=== PATIENT | male | born 1950 | race Caucasian/White ===

== ENCOUNTER → 2018-06-06 | Outpatient (CLI) | payer OTHER, BC | LOC: BHFA 11:30 | PROVIDERS: ATTEND Internal Medicine Cardiovascular Disease | DX: I48.91 Unspecified atrial fibrillation (principal); I25.10 Atherosclerotic heart disease of native coronary artery without angina pectoris; I10 Essential (primary) hypertension; E78.5 Hyperlipidemia, unspecified; G47.30 Sleep apnea, unspecified ==

== ENCOUNTER 2018-06-12 12:04 | Inpatient (IN) | payer OTHER, BC ==
[~2018-06-12 12:04] MED LIST: ATROPINE SULFATE 1 MG/10 ML SYR IVP ONE; BENZOCAINE UNIT DOSE SPRAY HURRICAINE MM ONE; MIDAZOLAM 2 MG/2 ML VIAL IVP ONE; NS 500 ML IV ONE; fentaNYL 100 MCG/2 ML INJ IVP ONE
[2018-06-12] MEDS ORDERED: PROPOFOL 200 MG/20 ML VIAL ONE ×2 (12:25→12:34)
--- NOTE | 2018-06-12 12:28 | PDANEPAE ---
ANE History of Present Illness Afib with RVR ANE Past Medical History - Cardiovascular History Hx Hypertension: Yes Hx Arrhythmias: Yes Hx Chest Pain: No Hx Coronary Artery / Peripheral Vascular Disease: Yes Hx CHF / Valvular Disease: No Hx Palpitations: Yes Cardiovascular History Comment: +CAD. +h/o TX. s/p stents x 5 - Pulmonary History Hx COPD: Yes Hx Asthma/Reactive Airway Disease: No Hx Recent Upper Respiratory Infection: No Hx Oxygen in Use at Home: Yes Hx Sleep Apnea: Yes - Neurologic History Hx Cerebrovascular Accident: No Hx Seizures: No Hx Dementia: No - Endocrine History Hx Diabetes: No Hypothyroid: No Hyperthyroid: No Obesity: moderate Endocrine History Comment: +pre-diabetes - not currently on meds - Renal History Hx Renal Disorders: No - Liver History Hx Hepatic Disorders: No - Neurological & Psychiatric Hx Hx Neurological and Psychiatric Disorders: No - Cancer History Hx Cancer: Yes Cancer History Comment: 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 ANE Review of Systems Review of systems is: negative Review of Systems: - Exercise capacity Exercise capacity: >=4 METS ANE Patient History - Allergies Allergies/Adverse Reactions: acetaminophen Allergy (Verified 06/12/18 13:38) Hives - Home Medications Home medications: home medication list seen and reviewed Home Medications: Apixaban [Eliquis] 5 mg PO BID 06/12/18 [Last Taken 06/12/18] Aspirin [Aspirin 81mg (*)] 81 mg PO DAILY 06/12/18 [Last Taken 06/11/18] Carvedilol [Coreg (*)] 12.5 mg PO BID 06/12/18 [Last Taken 06/11/18 21:00] Clopidogrel Bisulfate [Plavix (*)] 75 mg PO DAILY 06/12/18 [Last Taken 06/12/18] Herbals/Supplements -Info Only 1 ea PO DAILY 06/12/18 [Last Taken Unknown] Hydrochlorothiazide [HCTZ (*)] 12.5 mg PO HS 06/12/18 [Last Taken 06/11/18] Losartan/Hydrochlorothiazide [Losartan-Hctz 100-25 mg Tab] 1 each PO DAILY 06/12 [Last Taken 06/11/18] Multivitamins [Multivitamin (*)] 1 each PO DAILY 06/12/18 [Last Taken 06/11/18] Rosuvastatin Calcium [Crestor 20mg (*)] 20 mg PO HS 06/12/18 [Last Taken ] Tiotropium Inhaler [Spiriva Inhaler] 2 inh IH DAILY 06/12/18 [Last Taken ] - NPO status NPO Status: no food or drink >8 hours - Anes Hx Anes Hx: no prior problems - Smoking Hx Smoking Status: Former smoker - Alcohol Use Alcohol Use: Heavy - Family Anes Hx Family Anes Hx: none ANE Labs/Vital Signs - Labs Result Diagrams: 06/12/18 12:35 06/12/18 12:35 - Vital Signs Vital Signs: reviewed preoperatively; see RN documention for details ANE Physical Exam - Airway Neck exam: FROM Mallampati Score: Class 2 Mouth exam: normal dental/mouth exam, small mouth opening, [place] - Pulmonary Pulmonary: no respiratory distress - Cardiovascular Cardiovascular: regular rate and rhythym - ASA Status ASA Status: III ANE Anesthesia Plan Anesthesia Plan: GA with mask
--- NOTE | 2018-06-12 12:44 | PDGENHP ---
History & Physical Chief Complaint: symptomatic AFIB Relevant Physical Exam: s1s2 irreg. cta. ao3 Cardiorespiratory Assessment: for santos guided cv. plan sotalol after cv
--- NOTE | 2018-06-12 12:59 | PDTEE1 ---
RAFITA Cardioversion Procedure Procedure: electrical cardioversion, transesophageal echo Indications: atrial fibrillation Consent: signed and in chart Anticoagulation: eliquis Procedural Details: Pads were placed in anterior-posterior position. RAFITA probe was advanced and standard images obtained. There is no evidence of left atrial or left atrial appendage thrombus. Synchronized cardioversion attempt #1: 100J (ERAF after 5 minutes) Synchronized cardioversion attempt #2: 200J Results: normal sinus rhythm Conclusions: successful RAFITA cardioversion Patient Problems: Problems Problem Status Onset Atrial fibrillation Acute
[2018-06-12 13:05] LABS: INR 1.28 (0.83-1.16); PROTIME(PATIENT) 16.2 SEC (12.0-15.0)
--- NOTE | 2018-06-12 15:13 | POSTANESTH ---
Post Anesthetic Evaluation Cardiovascular Status: Normal, Stable Respiratory Status: Normal, Stable Level of Consciousness/Mental Status: Can Participate in Eval Pain Control: Adequate, Prn Tx Ordered Nausea/Vomiting Control: Adequate, Prn Tx Ordered Complications Possibly Related to Anesthesia: None Noted
[2018-06-12] MEDS ORDERED: IBUPROFEN 200 MG TAB PO ONE (15:24)
[2018-06-12 18:54] LABS: PLATELET COUNT 208 10^3/uL (150-400)
[2018-06-12] MEDS: APIXABAN 5 MG TAB PO SCH (21:06)
[2018-06-12] MEDS: ROSUVASTATIN CALCIUM 20 MG TAB PO SCH (21:06)
[2018-06-12] MEDS: SOTALOL HCL 80 MG TAB PO SCH (21:06)
[2018-06-12] MEDS: HYDROCHLOROTHIAZIDE 12.5 MG CAP PO SCH (21:06)
[2018-06-13] MEDS: SOTALOL HCL 80 MG TAB PO SCH ×2 (08:43→21:01)
[2018-06-13] MEDS: LOSARTAN/HCTZ 50/12.5 1 TAB PO SCH (08:43)
[2018-06-13] MEDS: ASPIRIN 81 MG CHEWABLE TAB PO SCH (08:44)
[2018-06-13] MEDS: CLOPIDOGREL BISULFATE 75 MG TAB PO SCH (08:44)
[2018-06-13] MEDS: APIXABAN 5 MG TAB PO SCH ×2 (08:45→21:01)
--- NOTE | 2018-06-13 08:49 | PDCARPN ---
Cardiology Progress Note Chief Complaint: Atrial fibrillation, sotalol loading Assessment/Plan: Assessment: 1. Atrial fibrillation: symptomatic paroxysmal atrial fibrillation s/p cardioversion yesterday followed by initiation of Sotalol loading. Pre- administration ECG demonstrated JT 359ms. ECG after 1st dose of Sotalol 120mg yesterday demonstrated stable JT also measuring 359ms. Potassium 3.5, Mg 2.1, Cr 0.7, and CrCl 146. Will continue with Sotalol loading today. He is anticoagulated with Eliquis, [id number] score = 3 (age, HTN, CAD). 2. Coronary artery disease: s/p PCI in 2007, 2009, and 2011. No anginal symptoms. 3. Sleep apnea: on CPAP 4: Obesity Plan: 1. Continue with Sotalol loading and monitoring with 2-hour post-dose ECGs for JT <400ms 2. Plan for DC home tomorrow after his 5th dose. 3. Ongoing education regarding necessary lifestyle modifications (weightloss, diet, and exercise) to reduce the likelihood of recurrent atrial fibrillation 06/13/18 08:51 06/13/18 08:56 Subjective: No issues or concerns overnight. Mr. Orellana denies lightheadedness, dizziness , palpitations, dyspnea, orthopnea, chest discomfort, or pre-syncope. He has been ambulatory around his room without issue. Reviewed/Discussed With: multidisciplinary team Time Spent with Patient: greater than 25 minutes Time Spent with Patient: Greater than 25 minutes spent on this patients care, greater than 50% of time spent counseling, educating, and coordinating care regarding the above mentioned plan. Objective: Vital Signs (8 Hrs) Temp Pulse Resp BP Pulse Ox 06/13/18 04:00 36.6 C 70 15 105/71 92 Intake/Output (24 Hrs) 06/12/18 06/13/18 06/14/18 05:59 05:59 05:59 Intake Total 1000 Balance 1000 Intake: Oral (ml) 650 IV Intake (ml) 350 Other: Weight 104.3 kg Number of Voids Toilet 1 Number of Stools Toilet 1 Result Diagrams: 06/12/18 18:40 06/13/18 04:59 EKG: JT 359ms 2 hours post-dose last NOC. Telemetry: NSR overnight - Physical Exam Constitutional: WDWN, healthy appearing, no apparent distress Ears, Nose, Mouth, Throat: moist mucous membranes, no oral ulcers, no thrush Cardiovascular: regular rate and rhythm, no murmurs, no rubs, no gallops Peripheral Pulses: 2+: dorsalis-pedis (R), dorsalis-pedis (L) Respiratory: clear to auscultate bilat, no crackles, no wheezes Gastrointestinal: normoactive bowel sounds, no tenderness, no masses Genitourinary: no suprapubic tenderness, no CVAT Skin: no rashes, no abrasions, no ulcers, warm, no edema Neurologic: AAOx3, CN II-XII grossly intact Psychiatric: cooperative, interactive, following commands, not anxious ICD10 Worksheet Patient Problems: Problems Problem Status Onset Atrial fibrillation Acute
[2018-06-13] MEDS ORDERED: LOSARTAN/HCTZ 50/12.5 1 TAB PO SCH (09:00)
[2018-06-13] MEDS ORDERED: TIOTROPIUM INHALER 18 MCG/DOSE 5 DOSE/MDI IH SCH (09:00)
--- NOTE | 2018-06-13 09:41 | CPEKG ---
Test Reason : OPEN Blood Pressure : / mmHG Vent. Rate : 095 BPM Atrial Rate : 116 BPM P-R Int : 160 ms QRS Dur : 139 ms QT Int : 396 ms P-R-T Axes : 000 262 028 degrees QTc Int : 498 ms Atrial fibrillation RBBB and LAFB Confirmed by Arsenio Regalado ([id number]) on 06/13/2018 9:40:44 AM Referred By: Confirmed By:Arsenio Regalado
--- NOTE | 2018-06-13 09:42 | CPEKG ---
Test Reason : OPEN Blood Pressure : / mmHG Vent. Rate : 087 BPM Atrial Rate : 087 BPM P-R Int : 188 ms QRS Dur : 141 ms QT Int : 404 ms P-R-T Axes : 052 260 021 degrees QTc Int : 486 ms Sinus rhythm RBBB and LAFB Sinus rhythm has replaced atrial fibrillation Confirmed by Arsenio Regalado ([id number]) on 06/13/2018 9:42:07 AM Referred By: Confirmed By:Arsenio Regalado
--- NOTE | 2018-06-13 09:43 | CPEKG ---
Test Reason : OPEN Blood Pressure : / mmHG Vent. Rate : 068 BPM Atrial Rate : 068 BPM P-R Int : 208 ms QRS Dur : 143 ms QT Int : 471 ms P-R-T Axes : 074 -89 030 degrees QTc Int : 502 ms Sinus rhythm RBBB and LAFB Confirmed by Arsenio Regalado ([id number]) on 06/13/2018 9:43:36 AM Referred By: Confirmed By:Arsenio Regalado
--- NOTE | 2018-06-13 15:02 | ASMTCMCOM ---
CM Note CM Note Notes: 06/12/2018 Case Management Note Pt admitted for sotolol loading. Family present. Anticipating discharge tomorrow. There are no identified case managmement discharge needs. Case Management d/c poc: independent with follow up as directed. Case Management available if needs change. Date Signed: 06/13/2018 03:01 PM Electronically Signed By:Leela Diaz RN
--- NOTE | 2018-06-13 15:13 | PDMN ---
Medical Necessity Medical necessity: Pt meets IP critertia as of 06/13/2018 per and MCG M-505 ( Atrial fibrillation); est los > 2 mn for ongoing tx and management of atrial fibrillation s/p ablation; requiring initiation of sotalol.
[2018-06-13] MEDS: HYDROCHLOROTHIAZIDE 12.5 MG CAP PO SCH (21:01)
[2018-06-13] MEDS: ROSUVASTATIN CALCIUM 20 MG TAB PO SCH (21:01)
[2018-06-14] MEDS: SOTALOL HCL 80 MG TAB PO SCH ×2 (08:59→14:12)
[2018-06-14] MEDS ORDERED: Tiotropium Bromide [Spiriva Respimat] 2 INH PO SCH (09:00)
[2018-06-14] MEDS: ASPIRIN 81 MG CHEWABLE TAB PO SCH (09:02)
[2018-06-14] MEDS: CLOPIDOGREL BISULFATE 75 MG TAB PO SCH (09:02)
[2018-06-14] MEDS: LOSARTAN/HCTZ 50/12.5 1 TAB PO SCH (09:02)
[2018-06-14] MEDS: APIXABAN 5 MG TAB PO SCH (09:02)
[2018-06-14] MEDS ORDERED: SODIUM CL NASAL 45 ML BTL EACHNARE ONE (10:39)
[2018-06-14] MEDS ORDERED: IBUPROFEN 200 MG TAB PO PRN (10:41)
[2018-06-14 12:06] LABS: PLATELET COUNT 220 10^3/uL (150-400)
[2018-06-14] MEDS ORDERED: IBUPROFEN 200 MG TAB PO ONE (12:32)
--- NOTE | 2018-06-14 15:26 | CPEKG ---
Test Reason : OPEN Blood Pressure : / mmHG Vent. Rate : 061 BPM Atrial Rate : 061 BPM P-R Int : 204 ms QRS Dur : 149 ms QT Int : 466 ms P-R-T Axes : 051 -88 002 degrees QTc Int : 470 ms Sinus rhythm RBBB and LAFB Confirmed by Arsenio Regalado ([id number]) on 06/14/2018 3:25:42 PM Referred By: Confirmed By:Arsenio Regalado
--- NOTE | 2018-06-14 15:26 | CPEKG ---
Test Reason : OPEN Blood Pressure : / mmHG Vent. Rate : 060 BPM Atrial Rate : 060 BPM P-R Int : 202 ms QRS Dur : 146 ms QT Int : 479 ms P-R-T Axes : 062 -81 -14 degrees QTc Int : 479 ms Sinus rhythm RBBB and LAFB Confirmed by Arsenio Regalado ([id number]) on 06/14/2018 3:26:14 PM Referred By: Confirmed By:Arsenio Regalado
--- NOTE | 2018-06-14 15:27 | CPEKG ---
Test Reason : OPEN Blood Pressure : / mmHG Vent. Rate : 065 BPM Atrial Rate : 065 BPM P-R Int : 205 ms QRS Dur : 146 ms QT Int : 442 ms P-R-T Axes : 060 267 014 degrees QTc Int : 460 ms Sinus rhythm RBBB and LAFB Confirmed by Arsenio Regalado ([id number]) on 06/14/2018 3:27:34 PM Referred By: Confirmed By:Arsenio Regalado
--- NOTE | 2018-06-14 16:01 | ASDISCHSUM ---
Discharge Information Plan Status:Home with No Needs Medically Cleared to Leave: Discharge Date: CM D/C Disposition:Home, Routine, Self-Care ADT D/C Disposition:Home, Routine, Self-Care Projected Discharge Date: Transportation at D/C:Family Discharge Delay Reason: Follow-Up Date: Discharge Slot: Final Diagnosis: Placement Information Patient Contact Information Contact Name:KRISTEN Relationship: Address:[address] [place] [address] Work Phone: City:[place] Alternate Phone: [facility] [address]/Zip Code:[place] [address] Email: Financial Information Financial Class:Medicare Primary Plan Desc:MEDICARE INPATIENT Primary Plan Number:[id number] Secondary Plan Desc:[facility] Secondary Plan Number:[id number] Assessment Information [facility] CM Progress Note CM Note CM Note Notes: 06/12/2018 Case Management Note Pt admitted for sotolol loading. Family present. Anticipating discharge tomorrow. There are no identified case managmement discharge needs. Case Management d/c poc: independent with follow up as directed. Case Management available if needs change. Date Signed: 06/13/2018 03:01 PM Electronically Signed By:Leela Diaz RN LACE LACE Length of stay for Answers: 1 day current admission Acuity / Level of Answers: Yes Care: Did the patient have an inpatient admission? Score: 4 Date Signed: 06/14/2018 04:00 PM Electronically Signed By:Tashia Vences Intervention Information
[2018-06-14 16:21] VITALS: BP 104/62
--- NOTE | 2018-06-14 19:55 | GDS ---
DISCHARGE DIAGNOSIS: HOSPITAL COURSE: The patient presented to the [facility] 06/12/2018 for cardioversion and sotalol loading i n the setting of increasing frequency of symptomatic episodes of atrial fibrillation. Baseline QTc af ter cardioversion in sinus rhythm was 345 milliseconds and was initiated at 120 mg b.i.d. Post administration ECGs have all demonstrated JT intervals less than 400 milliseconds. He is mainta ining normal sinus rhythm throughout his hospitalization. He is ambulating around the unit without is david. No chest pain, lightheadedness, dizziness, or other concerning symptoms. His hospital stay is notable for sinus congestion, discomfort and jaw pain. He has contacted his oral surgeon who recently performed extraction and his PCP for management of the symptoms. He is for disc [facility] home today. PHYSICAL EXAM: GENERAL: The patient is in no apparent distress. VITAL SIGNS: Blood pressure 103/60, heart rate 56, SpO2 93% on room air, temp 36.7. RESPIRATORY: Lungs are clear to auscultation with no adventitious breath sounds. CARDIAC: Normal S1, S2. No S3, S4, or murmurs. Rhythm is regular. ABDOMEN : Normoactive bowel sounds times all 4 quadrants. No masses or tenderness. ABDOMEN: Soft to palpation . SKIN: [place], warm, dry without cyanosis, clubbing, or peripheral edema. Extremities: No edema. Pulse s 2+ bilaterally. LABORATORY STUDIES: Drawn today. CBC and BMP within normal limits. PROCEDURES: Cardioversion as mentioned above. Electrocardiogram demonstrating stable JT interval, le ss than 400 milliseconds. DISCHARGE DISPOSITION: Patient will be discharged home in stable condition. He is under no activity restrictions. DISCHARGE MEDICATIONS: Please see discharge medication reconciliation sheet for full details. Please note, patient has been started on sotalol 120 mg twice daily, I have discontinued his carvedilol at this time due to his heart rates ranging from 55-65 beats per minute at this time. DISCHARGE INSTRUCTIONS: Sotalol instructions reviewed with the patient and his in detail includ ing the need to present for further evaluation if he experiences protracted vomiting or diarrhea in t he future while on this medication. He will also be sure to check carefully for any drug interactions if he is prescribed new medications in the future. He has a followup visit in [address] Yoana [place] for an EKG to check his JT interval and he will follow up in our clinic in 3 months. He will contact the clinic with any new or concerning symptoms in the meantime. This discharge took greater than 30 minutes. /[id number]/MODL
--- NOTE | 2018-06-17 08:20 | CPEKG ---
Test Reason : OPEN Blood Pressure : / mmHG Vent. Rate : 057 BPM Atrial Rate : 057 BPM P-R Int : 212 ms QRS Dur : 147 ms QT Int : 473 ms P-R-T Axes : 055 -85 -10 degrees QTc Int : 461 ms Sinus rhythm Borderline prolonged DE interval RBBB and LAFB DE interval has lengthened Confirmed by Arsenio Regalado ([id number]) on 06/17/2018 8:19:29 AM Referred By: Confirmed By:Arsenio Regalado
== END 2018-06-14 17:10 | disposition home or self-care (01) | DRG 310 ==
LOC: FCATH 12:04 → F2W 14:55 → OBSVTOIN 06-13 15:06
PROVIDERS: ADMIT Internal Medicine Cardiovascular Disease; ATTEND Internal Medicine Cardiovascular Disease
DX: I48.1 Persistent atrial fibrillation (principal); I25.10 Atherosclerotic heart disease of native coronary artery without angina pectoris; R68.84 Jaw pain; R09.81 Nasal congestion; I10 Essential (primary) hypertension; E78.5 Hyperlipidemia, unspecified; G47.30 Sleep apnea, unspecified; E66.9 Obesity, unspecified; Z68.36 Body mass index [BMI] 36.0-36.9, adult; Z79.01 Long term (current) use of anticoagulants
CPT/HCPCS: J2704

== ENCOUNTER → 2018-09-23 | Outpatient (CLI) | payer OTHER, BC | LOC: BHFA 11:30 | PROVIDERS: ATTEND Internal Medicine Cardiovascular Disease | DX: I48.91 Unspecified atrial fibrillation (principal) ==

== ENCOUNTER 2018-11-20 10:49 | Observation (INO) | payer OTHER, BC | END 2018-11-21 11:56 | disposition home or self-care (01) | LOC: FCATH 10:49 → F2N 16:43 ==